=== PATIENT | male | born 1955 | race Caucasian/White ===

== ENCOUNTER 2021-12-26 07:24 | Day surgery (SDC) | payer MEDICARE ==
[2021-12-26] MEDS ORDERED: Sodium Chloride 0.9% 1,000 ML IV SCH (07:45)
[2021-12-26] MEDS ORDERED: Midazolam 1 MG/ML 2 ML SDV ONE (07:57)
[2021-12-26] MEDS ORDERED: fentaNYL 100 MCG/2 ML SDV ONE (07:57)
[2021-12-26] MEDS ORDERED: Propofol 200 MG/20 ML SDV ONE (07:57)
== END 2021-12-26 10:34 | disposition home or self-care (01) ==
LOC: JP.SDS 07:24
PROVIDERS: ATTEND Surgery
DX: Z12.11 Encounter for screening for malignant neoplasm of colon (principal); D12.4 Benign neoplasm of descending colon; D72.10 Eosinophilia, unspecified; K21.9 Gastro-esophageal reflux disease without esophagitis; I10 Essential (primary) hypertension; G47.33 Obstructive sleep apnea (adult) (pediatric); Z79.810 Long term (current) use of selective estrogen receptor modulators (SERMs); Z79.899 Other long term (current) drug therapy; Z01.812 Encounter for preprocedural laboratory examination; Z20.822 Contact with and (suspected) exposure to COVID-19
CPT/HCPCS: 45380; 88305; J2250; J2704; J3010; J7030; U0002